=== PATIENT | male | born 1995 | race Two or more races ===

== ENCOUNTER 2025-04-30 08:23 | Emergency (ER) | payer MEDICAID, OTHER ==
[~2025-04-30] VITALS: Ht 177.8 cm; Wt 81.6 kg
[2025-04-30 08:33] VITALS: TEMP 97.9
[2025-04-30] MEDS ORDERED: KETOROLAC TROMETHAMINE 15 MG/ML VIAL ONE (09:26)
[2025-04-30] MEDS: KETOROLAC TROMETHAMINE 15 MG/ML VIAL IM ONE (09:33)
[2025-04-30] MEDS ORDERED: BACITRACIN ZINC OINT PACKET 1 EA PACKET TP ONE (09:57)
[2025-04-30] MEDS ORDERED: TDAP [DIPH/PERTUSSIS/TET] 0.5 ML VIAL IM ONE (09:57)
[2025-04-30] MEDS ORDERED: HYDROCODONE/APAP 5/325MG TABLET ONE (09:57)
[2025-04-30] MEDS ORDERED: BACI/NEOM/POLY B OINT PKT 1 UDPKT PACKET ONE (09:59)
[2025-04-30] MEDS ORDERED: IBUP-1955 PO (10:03)
[2025-04-30] MEDS: HYDROCODONE/APAP 5/325MG TABLET PO ONE (10:08)
[2025-04-30] MEDS: TDAP [DIPH/PERTUSSIS/TET] 0.5 ML VIAL IM ONE (10:09)
[2025-04-30] MEDS ORDERED: HYDR-4303 PO ×2 (10:10→10:13)
[2025-04-30] MEDS: BACI/NEOM/POLY B OINT PKT 1 UDPKT PACKET TP ONE (10:12)
[2025-04-30 10:46] VITALS: BP 108/66; O2SAT 100
== END 2025-04-30 10:41 | disposition home or self-care (01) ==
LOC: ER 08:27
DX: S62.321A Displaced fracture of shaft of second metacarpal bone, left hand, initial encounter for closed fracture (principal); S62.323A Displaced fracture of shaft of third metacarpal bone, left hand, initial encounter for closed fracture; S62.324A Displaced fracture of shaft of fourth metacarpal bone, right hand, initial encounter for closed fracture; S60.222A Contusion of left hand, initial encounter; F19.10 Other psychoactive substance abuse, uncomplicated; W50.0XXA Accidental hit or strike by another person, initial encounter; Y93.89 Activity, other specified; Y92.89 Other specified places as the place of occurrence of the external cause; Y99.8 Other external cause status
CPT/HCPCS: 29125; 73110; 73130; 90471; 90715; 96372; 99284; J1885